=== PATIENT | female | born 1960 | race Caucasian/White ===

== ENCOUNTER 2018-07-04 07:33 | Day surgery (SDC) | payer OTHER ==
[2018-07-04] MEDS ORDERED: MIDAZOLAM 1 MG/ML 2 ML INJ ×3 (10:07)
[2018-07-04] MEDS ORDERED: FENTAnyl 50 MCG/ML VIAL (10:08)
== END 2018-07-04 16:45 | disposition home or self-care (01) ==
LOC: GIL 07:33
DX: R19.4 Change in bowel habit (principal); K64.8 Other hemorrhoids; K29.60 Other gastritis without bleeding
CPT/HCPCS: 43239; 88305; 88312